=== PATIENT | male | born 1980 | race Caucasian/White ===

== ENCOUNTER 2016-10-05 08:34 | Inpatient (IN) | payer MEDICAID ==
[2016-10-05] MEDS ORDERED: Propofol 200 MG/20 ML SDV ONE (08:43)
[2016-10-05] MEDS ORDERED: Neostigmine Methylsulfate 1 MG/ML 5 ML Syringe ONE (08:43)
[2016-10-05] MEDS ORDERED: Dexamethasone 4 MG/ML SDV ONE (08:43)
[2016-10-05] MEDS ORDERED: Rocuronium 50 MG/5 ML Vial ONE (08:43)
[2016-10-05] MEDS ORDERED: Ondansetron 4 MG/2 ML SDV ONE (08:43)
[2016-10-05] MEDS ORDERED: Succinylcholine/Normal Saline 200 MG/10 ML Syringe ONE (08:43)
[2016-10-05] MEDS ORDERED: fentaNYL 250 MCG/5 ML SDV ONE (08:44)
[2016-10-05] MEDS: Dextrose 5%-Lactated Ringers 1,000 ML IV SCH ×3 (10:20→22:29)
[2016-10-05] MEDS ORDERED: HYDROmorphone/Normal Saline 15 MG/30 ML PCA IV PRN (10:26)
[2016-10-05] MEDS ORDERED: Naloxone 0.4 MG/ML SDV IVPUSH PRN (10:26)
[2016-10-05] MEDS ORDERED: ceFAZolin 2 GM in Premix Bag 1 BAG IV ONE (11:00)
[2016-10-05] MEDS ORDERED: Lactated Ringers 1,000 ML ONE (11:42)
[2016-10-05] MEDS ORDERED: Ondansetron 4 MG/2 ML SDV IVPUSH PRN (13:32)
[2016-10-05] MEDS: Metoclopramide 10 MG/2 ML SDV IVPUSH SCH ×2 (15:17→22:36)
[2016-10-05] MEDS: Pantoprazole 40 MG Vial IV SCH (15:17)
[2016-10-05] MEDS: ceFAZolin 2 GM in Sodium Chloride 0.9% 50 ML IV SCH (18:09)
[2016-10-05] MEDS ORDERED: Lidocaine 2% Jelly 10 ML Urojet MUCMEM ONE (23:57)
[2016-10-06] MEDS: Haloperidol Lactate 5 MG/ML SDV IVPUSH PRN ×2 (00:23→07:14)
[2016-10-06] MEDS: ceFAZolin 2 GM in Sodium Chloride 0.9% 50 ML IV SCH ×2 (01:52→09:47)
[2016-10-06] MEDS: Metoclopramide 10 MG/2 ML SDV IVPUSH SCH ×4 (03:10→21:13)
[2016-10-06] MEDS: Dextrose 5%-Lactated Ringers 1,000 ML IV SCH ×3 (04:25→20:36)
[2016-10-06] MEDS ORDERED: Tamsulosin 0.4 MG Cap.ER PO STA (06:36)
[2016-10-06] MEDS ORDERED: HYDROmorphone 2 MG Tab PO PRN (07:26)
[2016-10-06] MEDS ORDERED: Tamsulosin 0.4 MG Cap.ER PO ONE (09:00)
[2016-10-06] MEDS: Acetaminophen/HYDROcodone 325-5 MG Tab PO PRN (16:31)
[2016-10-06] MEDS: Pantoprazole 40 MG Vial IV SCH (16:31)
[2016-10-06] MEDS ORDERED: Tamsulosin 0.4 MG Cap.ER PO SCH (21:00)
[2016-10-07] MEDS: Metoclopramide 10 MG/2 ML SDV IVPUSH SCH (04:32)
[2016-10-07 07:05] VITALS: BP 144/89
[2016-10-07] MEDS: Acetaminophen/HYDROcodone 325-5 MG Tab PO PRN (07:51)
--- NOTE | 2016-10-08 02:08 | DISCH ---
ADMISSION DIAGNOSIS: Gastroesophageal reflux disease refractory to medical management. DISCHARGE DIAGNOSIS: Laparoscopic Earnest fundoplication. HISTORY: Ke Anthony is a 36-year-old male with gastroesophageal reflux disease, refractory to medical management. After preoperative evaluation and discussion of possible risks and possible complications, he wished to proceed with surgical procedure. HOSPITAL COURSE: Ke had his surgery on 10/05/2016. He had no operative complications. On postop day #1, he was started on a clear liquid diet, advanced to a full liquid diet in the evening. He did have some episodes of hiccuping and he did have Haldol ordered. His symptoms occur mainly when he drinks something cold. On postop day #2, his vital signs were stable. Pain was managed. His oral intake was adequate. Activity good and he was ready to be discharged to home. PHYSICAL EXAMINATION: GENERAL: Ke Anthony is a 36-year-old male. Height is 5 feet 9 inches. Weight is 165 pounds. VITAL SIGNS: TPR is 98.8, 96, 18, blood pressure is 144/89. HEENT: Negative. NECK: Supple. HEART: Regular rate and rhythm. LUNGS: Clear. ABDOMEN: Incisions look good. Abdominal binder is on. EXTREMITIES: Without peripheral edema. ASSESSMENT: Discharge to home. CONDITION: Stable and improving. FOLLOWUP: With Constantin Barrera MD, at [facility] 10/14/2016 at 8:30 a.m. HOME MEDICATIONS: [place] 5/325 mg 1 to 2 every 4 hours p.r.n. pain #50 and he may resume his Protonix 40 mg as needed for heartburn. Continue vitamin D3 5000 international units daily. DIET: After discharge; drink 8 to 10 glasses of water a day. Full liquid diet for 2 weeks. ACTIVITY: As tolerated. DISCHARGE INSTRUCTIONS: No lifting greater than 10 pounds for 2 weeks[address] Driving; do not drive on pain medication. May shower. Notify provider if any fever, increased pain, nausea, or vomiting. Wound incision care, keep site, clean and dry. Wear abdominal binder for 2 weeks and then as tolerated. SPECIAL INSTRUCTION: Use incentive spirometer 10 times every hour while awake for 2 weeks. Call clinic if having any more hiccuping.
--- NOTE | 2016-10-09 07:53 | PN ---
DATE OF SERVICE: 10/06/2016 The patient has been afebrile with stable vital signs. He did have some intermittent hiccups overnight, and these appear to be subsiding. Also retained urine, had a Johnson catheter placed with a large amount of retained urine noted. We did give him some Flomax this morning and then give that again at bedtime tonight, and try to get the Johnson catheter out early this afternoon. Otherwise, begin a full liquid diet and go over to oral pain medication. Constantin Barrera MD /[id number]
--- NOTE | 2016-10-11 14:34 | OR ---
DATE OF PROCEDURE: 10/05/2016 PREOPERATIVE DIAGNOSIS: Gastroesophageal reflux disease refractory to medical management. 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 OPERATIVE PROCEDURE: Laparoscopic Earnest fundoplication with concurrent repair of paraesophageal diaphragmatic hernia with mesh (28381). ANESTHESIA: General. INSTRUCTIONAL TECHNOLOGIST: Chandrika Burns PA-C. INDICATION FOR PROCEDURE: This is a 36-year-old male presenting with increasingly symptomatic gastroesophageal reflux disease, which has become refractory to medical management. After preoperative evaluation and discussion, he wished to proceed with a Earnest fundoplication. Potential risks of the procedure including bleeding, infection, injury to viscera in the area, problems with fundoplication such as dysphagia, gas-bloat syndrome disorders, gastric emptying rate, as well as possible incomplete relief of reflux symptoms were all reviewed, and the patient wishes to proceed. DETAILS OF PROCEDURE: The patient was taken to the operating room and placed in a supine position. After general endotracheal anesthesia was induced, he was converted into a lithotomy position. Johnson catheter was inserted and the abdomen was prepped and draped. A 15 cm inferior and 5 cm left of xiphoid process, transverse incision was made and the peritoneal cavity entered under direct vision with an Optiview trocar. The peritoneal cavity was inflated to 15 mmHg with CO2. Laparoscope was reinserted. No underlying trocar insertion site injuries were seen. Following this, 4 additional trocars were placed across the upper and mid abdomen, and general exploration was undertaken. As I elevated liver, the patient was noted to have a large hiatal hernia present. This included a major paraesophageal component with prolapse of gastric fundus, perigastric fat as well as some omentum in the plane anterior to the course of the esophagus. This was reduced and the peritoneum overlying was divided and reflected downward. The esophagus was then dissected away from the crura on each side using a combination of Harmonic scalpel and blunt dissection. The retroesophageal window was then created with a [place] drain around this. This facilitated additional dissection of the attachments to the esophagus, which eventually led to an intraabdominal esophageal length of around 5 cm without high tension on the [place] drain. Crural repair was then accomplished posteriorly with some 0 Ethibond sutures reinforced with PTFE pledgets. Given the extent of the diaphragmatic hernia, a decision was made to proceed with placement of Phasix mesh. This was cut such that it would lay across the crural repair posteriorly, along the edges of the esophagus up along the diaphragm adjacent to the esophagus. This was cut in such a pattern, then positioned, and fixed there with some titanium tacking screws. At this point, beginning in the mid greater curvature, the omentum was divided away from the stomach with Harmonic scalpel. This dissection continued upward to include division of the short gastric vessels including the highest and posterior short gastric vessels. This resulted in satisfactory mobile fundus. The latter was retrieved through the retroesophageal window. At this point, Anesthesia passed a guidewire orally through the length of the esophagus and into the stomach. Over this, a 54-Bulgarian Savary dilator was placed, a 3-stitch 2 cm fundoplication was accomplished with 0 Ethibond sutures reinforced with PTFE pledgets. Each of the sutures included a bite of the underlying esophagus. After fundoplication sutures were placed, one suture was placed on each side between the upper aspect of the fundoplication and the overlying diaphragm with the same stitch pledget combination to prevent slippage of the fundoplication over time. The guidewire and dilator were then removed and fundoplication was inspected and found to be nicely floppy. At that point, no further problems noted. Trocars removed. The peritoneal cavity was deflated. The fascia at the 12 mm trocar site was closed with 0 Vicryl stitch and the skin with each incision with a 4-0 Vicryl skin stitch. Dressing was applied. The patient was taken to the recovery room in satisfactory condition. Physician acute care assistant, Chandrika Burns, played an essential role in assisting in this case, helping to position the patient, retract structures as needed, as well as suturing and cutting sutures when indicated. Her presence improved patient's safety and decreased operative time. Constantin Barrera MD /[id number]
== END 2016-10-07 09:40 | disposition home or self-care (01) | DRG 220 ==
LOC: JP.MS 09:24 → JP.SDS 09:24 → JP.MS 12:55 → EDSTATUS 15:00 → JP.SDSSCHI 10-07 08:47 → JP.MS 10-07 08:52
PROVIDERS: ADMIT Surgery; ATTEND Surgery
PROC: 0BUS4JZ (ICD-10-PCS; principal; 2016-10-05)
PROC: 0BUR4JZ (ICD-10-PCS; principal; 2016-10-05)
PROC: 0DV44ZZ Restriction of Esophagogastric Junction, Percutaneous Endoscopic Approach (ICD-10-PCS; principal; 2016-10-05)
DX: K21.9 Gastro-esophageal reflux disease without esophagitis (principal); K44.9 Diaphragmatic hernia without obstruction or gangrene; R06.6 Hiccough; R33.9 Retention of urine, unspecified
CPT/HCPCS: 36415; 80048; 83735; 84100; 85027; 94762; A9270-GY; C9113; J0690; J1100; J1170; J1630; J2405; J2704; J2765; J3010; J7042; J7050; J7120